=== PATIENT | male | born 2000 | race Hispanic/Latino ===

== ENCOUNTER 2018-04-11 10:44 | Emergency (ER) | payer SELFPAY ==
[2018-04-11 11:46] LABS: Absolute Lymphocytes (CBC) 1.7 K/uL (0.7-4.9); Absolute Monocytes 0.4 K/uL (0.1-1.3); Basophils % 0.3 % (0-1.3); Eosinophils % 0.5 % (0-4.4); Hematocrit 47.4 % (39.6-49.0); Lymphocytes % 20.4 % (15.3-44.8); MCH 30.5 pg (27.0-35.0); MCV 87.8 fL (80-100); MPV 9.2 fL (7.6-11.3); Monocytes % 4.6 % (3.3-12.3)
[2018-04-11 12:02] LABS: BUN Blood Urea Nitrogen 16 mg/dL (7-18); Bicarbonate 33 mmol/L (21-32); Glucose Level 113 mg/dL (74-106); Potassium 3.6 mmol/L (3.5-5.1); Sodium Level 140 mmol/L (136-145)
--- NOTE | 2018-04-11 12:04 | RAD REPORT ---
EXAM DESCRIPTION: CT - Head Brain Wo Cont - 04/11/2018 11:38 am CLINICAL HISTORY: CONFUSED Drowsiness COMPARISON: None TECHNIQUE: All CT scans are performed using dose optimization technique as appropriate and may inclu de automated exposure control or mA/KV adjustment according to patient size. FINDINGS: No intracranial hemorrhage, hydrocephalus or extra-axial fluid collection.No areas of brai n edema or evidence of midline shift. The paranasal sinuses and mastoids are clear. The calvarium is intact. IMPRESSION: No acute intracranial abnormality.
[2018-04-11] MEDS ORDERED: NA CHLORIDE 0.9% 1,000 ML ONE (12:30)
--- NOTE | 2018-04-11 12:39 | ER ---
Nurse's Notes [facility] Name: Jason Connelly Jr Age: 18 yrs Sex: Male : 2000 Arrival Date: 04/11/2018 Time: 10:47 Bed 13 Private MD: None, None Diagnosis: Nausea and vomiting;Diarrhea, unspecified;Palpitations Presentation: 04/11 10:57 Presenting complaint: Patient states: He got drunk last Friday, the next day he was aj1 vomiting which continued for the next 2 days. Patient states that he wakes up feeling nauseated, but is no longer vomiting. States that he is frequently forgetting things and having palpitations. Reports feeling more thirsty than normal since last Friday, and headache. Transition of care: patient was not received from another setting of care. Onset of symptoms was April 04, 2018. Risk Assessment: Do you want to hurt yourself or someone else? Patient reports no desire to harm self or others. Initial Sepsis Screen: Does the patient meet any 2 criteria? No. Patient's initial sepsis screen is negative. Does the patient have a suspected source of infection? No. Patient's initial sepsis screen is negative. Care prior to arrival: None. 10:57 Method Of Arrival: Ambulatory aj1 10:57 Acuity: STACEY 3 aj1 Triage Assessment: 11:02 Headache History: Denies prior headaches. General: Appears in no apparent distress. aj1 Behavior is calm, cooperative, appropriate for age. Pain: Complains of pain in forehead and occipital area Pain does not radiate. Pain currently is 7 out of 10 on a pain scale. Quality of pain is described as aching, Pain began one week ago Also complains of nausea. Neuro: Level of Consciousness is awake, alert, obeys commands, Moves all extremities. Full function Gait is steady, Speech is normal, Facial symmetry appears normal. Cardiovascular: Reports palpitations. Respiratory: Reports shortness of breath Airway is patent Respiratory effort is even, unlabored, Respiratory pattern is regular, symmetrical. GI: No signs and/or symptoms were reported involving the gastrointestinal system. Historical: - Allergies: 11: No Known Allergies; aj1 - Home Meds: 11: None [Active]; aj1 - PMHx: 11: None; aj1 - PSHx: 11: None; aj1 - Immunization history:: Flu vaccine is not up to date. - Social history:: Smoking status: Patient/guardian denies using tobacco. - Ebola Screening: : Patient denies travel to an Ebola-affected area in the 21 days before illness onset. - Family history:: not pertinent. - Hospitalizations: : No recent hospitalization is reported. Screenin:37 Abuse screen: Denies threats or abuse. Nutritional screening: No deficits noted. rb1 Tuberculosis screening: No symptoms or risk factors identified. Fall Risk None identified. Assessment: 11:05 General: Appears uncomfortable, slender, Behavior is calm, cooperative. General: It was rb1 the first time the pt. every had hard liquor.. Pain: Complains of pain in forehead Pain currently is 5 out of 10 on a pain scale. Neuro: Level of Consciousness is awake, alert, obeys commands, Oriented to person, place, time, situation, Reports headache frontal area, Having trouble remembering things.. Cardiovascular: Capillary refill < 3 seconds is brisk in bilateral fingers. Respiratory: Airway is patent Respiratory effort is even, unlabored, Respiratory pattern is regular, symmetrical. GI: Patient currently denies diarrhea, nausea, vomiting. : No signs and/or symptoms were reported regarding the genitourinary system. Derm: Skin is dry, Skin is normal, Skin temperature is warm. 12:04 Reassessment: Patient appears in no apparent distress at this time. No changes from rb1 previously documented assessment. 13:15 Reassessment: Patient appears in no apparent distress at this time. Patient and/or kr2 family updated on plan of care and expected duration. Pain level reassessed. Patient is alert, oriented x 3, equal unlabored respirations, skin warm/dry/pink. Patient to be discharged when IV fluid infusion completed. 13:59 Reassessment: Patient appears in no apparent distress at this time. Patient and/or rb1 family updated on plan of care and expected duration. Pain level reassessed. Patient is alert, oriented x 3, equal unlabored respirations, skin warm/dry/pink. Patient denies pain at this time. Patient states feeling better. Vital Signs: 11:02 BP 134 / 84; Pulse 75; Resp 18; Temp 98.0; Pulse Ox 98% on R/A; Weight 62.6 kg (R); aj1 Height 5 ft. 11 in. (180.34 cm) (R); Pain 7/10; 12:00 BP 123 / 83; Pulse 74; Resp 12; Pulse Ox 100% ; rb1 12:30 BP 129 / 78; Pulse 70; Resp 24; Pulse Ox 100% ; rb1 14:00 BP 116 / 83; Pulse 70; Resp 17; Pulse Ox 99% on R/A; kr2 11:02 Body Mass Index 19.25 (62.60 kg, 180.34 cm) aj1 ED Course: 10:47 Patient arrived in ED. sb2 10:47 None, None is Private Physician. sb2 11:01 Triage completed. aj1 11:02 Arm band placed on Patient placed in an exam room. aj1 11:04 Michael Pennington MD is Attending Physician. rn 11:05 Leonarda Cui, ADITYA is Primary Nurse. rb1 11:30 Inserted saline lock: 22 gauge in right antecubital area, using aseptic technique. rb1 Blood collected. Patient maintains SpO2 saturation greater than 95% on room air. 11:37 CT Head Brain wo Cont In Process Unspecified. EDMS 11:37 Patient has correct armband on for positive identification. Placed in gown. Bed in low rb1 position. Call light in reach. Side rails up X 1. log deck tender on. Pulse ox on. NIBP on. 11:37 [place] Screen Profile Sent. rb1 11:37 Influenza Screen (a \T\ B) Sent. rb1 11:37 Strep Sent. rb1 11:40 CT completed. Patient tolerated procedure well. Patient moved back from CT. bq 12:23 EKG done, by ED staff, reviewed by Michael Pennington MD. dh3 14:00 No provider procedures requiring assistance completed. IV discontinued, intact, kr2 bleeding controlled, No redness/swelling at site. Pressure dressing applied. Administered Medications: 12:00 Drug: NS 0.9% 1000 ml Route: IV; Rate: 1000 ml; Site: right antecubital; rb1 13:57 Follow up: Response: No adverse reaction; IV Status: Completed infusion kr2 Point of Care Testing: Blood Glucose: 11:13 Blood Glucose: 83 mg/dL; rb1 11:13 Gave the pt. some juice and crackers. rb1 Ranges: Outcome: 12:38 Discharge ordered by . rn 14:00 Discharged to home ambulatory, with family. kr2 14:00 Condition: good 14:00 Discharge instructions given to patient, family, Instructed on discharge instructions, follow up and referral plans. medication usage, Demonstrated understanding of instructions, follow-up care, medications, Prescriptions given X 1. 14:01 Patient left the ED. kr2 Signatures: Dispatcher [employer] EDMS Amanda Rousseau RN RN aj1 Adela Moon Roman, MD MD rn Barber, Rebecca, RN RN rb1 Larissa Echevarria 3 Poonam Zhou RN RN kr2 Emma Vides sb2 Corrections: (The following items were deleted from the chart) 11:37 General: Appears uncomfortable, slender, Behavior is calm, cooperative, rb1 rb1 11:37 Pain: Complains of pain in forehead Pain currently is 5 out of 10 on a pain rb1 scale. rb1 11:37 Neuro: Level of Consciousness is awake, alert, obeys commands, Oriented to rb1 person, place, time, situation, Reports headache frontal area, Having trouble remembering things.. rb1 11:37 General: It was the first time the pt. every had hard liquor.. rb1 rb1 : 11:37 Cardiovascular: Capillary refill < 3 seconds is brisk in bilateral fingers rb1 rb1 :46 11:37 Respiratory: Airway is patent Respiratory effort is even, unlabored, Respiratory rb1 pattern is regular, symmetrical, rb1 11:37 GI: Patient currently denies diarrhea, nausea, vomiting, rb1 rb1 11:37 : No signs and/or symptoms were reported regarding the genitourinary system. rb1rb1 11:37 Derm: Skin is dry, Skin is normal, Skin temperature is warm rb1 rb1
--- NOTE | 2018-04-11 12:39 | EDPHYS ---
Physician Documentation [facility] Name: Jason Connelly Jr Age: 18 yrs Sex: Male : 2000 Arrival Date: 04/11/2018 Time: 10:47 Bed 13 Private MD: None, None ED Physician Michael Pennington HPI: 04/11 11:14 This 18 yrs old Male presents to ER via Ambulatory with complaints of rn Palpitations, Memory Loss, Headache. 11:14 The patient presents with a history of heart racing. Context: The symptoms occur at rn rest. Onset: The symptoms/episode began/occurred 1 week(s) ago. Duration: The patient or guardian reports multiple episodes. Modifying factors: The symptoms are aggravated by nothing. The symptoms are alleviated by nothing. Severity of symptoms: At their worst the symptoms were mild in the emergency department the symptoms are unchanged. The patient has not experienced similar symptoms in the past. REports got drunk last Friday, has felt sick since then with nausea, palpitations, diarrhea, fatigue, and forgetful. No abd pain, no chest pain/sob. Seen at urgent care, told was depressed. Not suicidal/homicidal. . Historical: - Allergies: 11:02 No Known Allergies; aj1 - Home Meds: 11:02 None [Active]; aj1 - PMHx: 11:02 None; aj1 - PSHx: 11:02 None; aj1 - Immunization history:: Flu vaccine is not up to date. - Social history:: Smoking status: Patient/guardian denies using tobacco. - Ebola Screening: : Patient denies travel to an Ebola-affected area in the 21 days before illness onset. - Family history:: not pertinent. - Hospitalizations: : No recent hospitalization is reported. ROS: 11:14 Constitutional: Negative for fever, weight loss, Eyes: Negative for injury, pain, rn redness, and discharge, Neck: Negative for injury, pain, and swelling, Cardiovascular: Negative for chest pain,and edema, Respiratory: Negative for shortness of breath, cough, wheezing, and pleuritic chest pain, Abdomen/GI: Negative for abdominal pain, and constipation, MS/Extremity: Negative for injury and deformity, Skin: Negative for injury, rash, and discoloration, Neuro: Negative for numbness, tingling, and seizure. Exam: 11:14 Constitutional: This is a well developed, well nourished patient who is awake, alert, rn and in no acute distress. Head/Face: Normocephalic, atraumatic. Eyes: Pupils equal round and reactive to light, extra-ocular motions intact. Lids and lashes normal. Conjunctiva and sclera are non-icteric and not injected. Cornea within normal limits. Periorbital areas with no swelling, redness, or edema. ENT: MMM Neck: Trachea midline, no thyromegaly or masses palpated, and no cervical lymphadenopathy. Supple, full range of motion without nuchal rigidity, or vertebral point tenderness. No Meningismus. Chest/axilla: Normal chest wall appearance and motion. Nontender with no deformity. No lesions are appreciated. Cardiovascular: Regular rate and rhythm with a normal S1 and S2. No gallops, murmurs, or rubs. Normal PMI, no JVD. No pulse deficits. Respiratory: Lungs have equal breath sounds bilaterally, clear to auscultation and percussion. No rales, rhonchi or wheezes noted. No increased work of breathing, no retractions or nasal flaring. Abdomen/GI: Soft, non-tender, with normal bowel sounds. No distension or tympany. No guarding or rebound. No evidence of tenderness throughout. Skin: Warm, dry with normal turgor. Normal color with no rashes, no lesions, and no evidence of cellulitis. MS/ Extremity: Pulses equal, no cyanosis. Neurovascular intact. Full, normal range of motion. Equal circumference. Neuro: Awake and alert, GCS 15, oriented to person, place, time, and situation. Cranial nerves II-XII grossly intact. Motor strength 5/5 in all extremities. Sensory grossly intact. Cerebellar exam normal. Normal gait. Vital Signs: 11:02 BP 134 / 84; Pulse 75; Resp 18; Temp 98.0; Pulse Ox 98% on R/A; Weight 62.6 kg (R); aj1 Height 5 ft. 11 in. (180.34 cm) (R); Pain 7/10; 12:00 BP 123 / 83; Pulse 74; Resp 12; Pulse Ox 100% ; rb1 12:30 BP 129 / 78; Pulse 70; Resp 24; Pulse Ox 100% ; rb1 14:00 BP 116 / 83; Pulse 70; Resp 17; Pulse Ox 99% on R/A; kr2 11:02 Body Mass Index 19.25 (62.60 kg, 180.34 cm) aj1 MDM: 11:05 Patient medically screened. rn 12:29 Data reviewed: vital signs, nurses notes, lab test result(s), EKG, radiologic studies, rn CT scan, and as a result, I will discharge patient. 12:35 Counseling: I had a detailed discussion with the patient and/or guardian regarding: the rn historical points, exam findings, and any diagnostic results supporting the discharge/admit diagnosis, lab results, radiology results, the need for outpatient follow up, to return to the emergency department if symptoms worsen or persist or if there are any questions or concerns that arise at home. Response to treatment: the patient's symptoms have mildly improved after treatment, and as a result, I will discharge patient. Special discussion: I discussed with the patient/guardian in detail that at this point there is no indication for admission to the hospital. It is understood, however, that if the symptoms persist or worsen the patient needs to return immediately for re-evaluation. 04/11 11:14 Order name: CBC with Diff; Complete Time: 12:18 rn 04/11 11:14 Order name: Basic Metabolic Panel; Complete Time: 12:18 rn 04/11 11:14 Order name: Strep; Complete Time: 12:18 rn 04/11 11:14 Order name: Influenza Screen (a \T\ B); Complete Time: 12:18 rn 04/11 11:14 Order name: [place] Screen Profile; Complete Time: 12:18 rn 04/11 12:00 Order name: Throat Culture EDHI 04/11 11:14 Order name: IV Start; Complete Time: 11:37 rn 04/11 11:14 Order name: CT Head Brain wo Cont; Complete Time: 12:18 rn 04/11 11:14 Order name: Glucose Level; Complete Time: 11:37 rn 04/11 11:14 Order name: EKG; Complete Time: 11:14 rn 04/11 11:14 Order name: EKG - Nurse/Tech; Complete Time: 13:16 rn Administered Medications: 12:00 Drug: NS 0.9% 1000 ml Route: IV; Rate: 1000 ml; Site: right antecubital; rb1 13:57 Follow up: Response: No adverse reaction; IV Status: Completed infusion kr2 Point of Care Testing: Blood Glucose: 11:13 Blood Glucose: 83 mg/dL; rb1 11:13 Gave the pt. some juice and crackers. rb1 Ranges: Critical Glucose Levels:Adult <50 mg/dl or >400 mg/dl <40 mg/dl or >180 mg/dl Disposition: 04/11/18 12:38 Discharged to Home. Impression: Nausea and vomiting, Diarrhea, unspecified, Palpitations. - Condition is Stable. - Discharge Instructions: Diarrhea, Adult, Nausea and Vomiting, Adult, Palpitations. - Prescriptions for Zofran ODT 4 mg Oral tablet,disintegrating - place 1 tablet by TRANSLINGUAL route every 8-10 hours As needed; 20 tablet. - Medication Reconciliation Form, Thank You Letter, Antibiotic Education, Prescription Opioid Use form. - Follow up: Private Physician; When: As needed; Reason: Recheck today's complaints, Re-evaluation by your physician. - Problem is an ongoing problem. - Symptoms have improved. Signatures: Dispatcher [employer] EDHI Amanda Rousseau RN RN aj1 Michael Pennington MD MD rn Barber, Rebecca, RN RN rb1 Poonam Zhou RN RN kr2 Corrections: (The following items were deleted from the chart) 14:01 12:38 04/11/2018 12:38 Discharged to Home. Impression: Nausea and vomiting; Diarrhea, kr2 unspecified; Palpitations. Condition is Stable. Forms are Medication Reconciliation Form, Thank You Letter, Antibiotic Education, Prescription Opioid Use. Follow up: Private Physician; When: As needed; Reason: Recheck today's complaints, Re-evaluation by your physician. Problem is an ongoing problem. Symptoms have improved. rn
--- NOTE | 2018-04-11 13:03 | EKG ---
Test Date: 2018-04-11 Test Time: 12:18:45 Application Software Developer: JOSETTE MEASUREMENT RESULTS: Intervals: Rate: 71 SC: 126 QRSD: 118 QT: 374 QTc: 406 [place]: P: 32 SC: 126 QRS: 104 T: 72 INTERPRETIVE STATEMENTS: Normal sinus rhythm Rightward axis Incomplete right bundle branch block Early repolarization Borderline ECG No previous ECG available for comparison Electronically Signed On 04-11-18 13:02:36 CDT by Lv Hackett
== END 2018-04-11 14:01 | disposition home or self-care (01) ==
LOC: ER 10:44
DX: R11.2 Nausea with vomiting, unspecified (principal); R19.7 Diarrhea, unspecified; R00.2 Palpitations
CPT/HCPCS: 36415; 70450; 80048; 82962; 85025; 86308; 87070; 87081; 87804; 93005; 96360; 96361; 99285; J7030